=== PATIENT | male | born 1970 | race Caucasian/White ===

== ENCOUNTER 2019-07-24 19:24 | Inpatient (IN) | payer BC ==
[2019-07-24] MEDS: SODIUM CHLORIDE 0.9% 1L BAG IV* (20:07)
[2019-07-24] MEDS: ONDANSETRON 4 MG INJ IV (20:08)
[2019-07-24] MEDS: ACETAMINOPHEN 325 MG TAB PO (20:08)
[2019-07-24] MEDS: morphine 4 MG/ML VIAL IV ×2 (20:08→20:16)
[2019-07-24] MEDS: AMPICILLIN/SULB 3 GM/NS (PMX) 100 ML IVPB (20:11)
[2019-07-24 20:17] LABS: ADD MAN DIFF? NO
[2019-07-24 20:21] LABS: BASOPHILS % 0.1 % (0.0-2.0); HEMATOCRIT 44.9 % (42.0-52.0); HEMOGLOBIN 15.1 g/dl (14.0-18.0); LYMPHOCYTES # 0.7 10^3/ul (0.8-2.9); MEAN CORPUSCULAR HEMOGLOBIN 32.6 pg (29.0-33.0); MEAN CORPUSCULAR HGB CONC 33.6 g/dl (32.0-37.0); MEAN PLATELET VOLUME 10.3 fl (7.4-10.4); MONOCYTE # 0.3 10^3/ul (0.3-0.9); NEUTROPHIL # 7.2 10^3/ul (1.6-7.5); NEUTROPHILS % 87.7 % (39.0-77.0); PLATELET COUNT 167 10^3/UL (140-415); RED BLOOD COUNT 4.63 10^6/ul (4.70-6.10); RED CELL DISTRIBUTION WIDTH 12.6 % (11.5-14.5)
[2019-07-24 20:21] LABS: WHITE BLOOD COUNT 8.2 10^3/ul (4.8-10.8)
[2019-07-24 20:30] LABS: ADD UMIC YES; UR ASCORBIC ACID NEGATIVE (NEGATIVE); UR BILIRUBIN (Dip) NEGATIVE (NEGATIVE); UR BLOOD (Dip) NEGATIVE (NEGATIVE); UR CLARITY SLIGHTLY CLOUDY (CLEAR); UR COLOR YELLOW (YELLOW); UR GLUCOSE (Dip) NEGATIVE (NEGATIVE); UR KETONES (Dip) 1+ mg/dL (NEGATIVE); UR LEUKOCYTE ESTERASE (Dip) NEGATIVE Leu/ul (NEGATIVE); UR MUCUS MODERATE /HPF (NONE SEEN); UR NITRITE (Dip) NEGATIVE (NEGATIVE); UR RBC 1 /HPF (0-5); UR SPECIFIC GRAVITY (Dip) 1.021 (1.003-1.030); UR TOTAL PROTEIN (Dip) 1+ mg/dl (NEGATIVE); UR UROBILINOGEN (Dip) NEGATIVE (NEGATIVE); UR WBC 1 /HPF (0-5)
[2019-07-24 20:41] LABS: ALANINE AMINOTRANSFERASE 46 IU/L (13-69); ALBUMIN 4.3 g/dl (3.3-4.9); ALBUMIN/GLOBULIN RATIO 1.43; ALKALINE PHOSPHATASE 36 IU/L (42-121); ANION GAP 9 (5-13); ASPARTATE AMINO TRANSFERASE 29 IU/L (15-46); BLOOD UREA NITROGEN 12 mg/dl (7-20); CALCIUM 9.3 mg/dl (8.4-10.2); CARBON DIOXIDE 22 mmol/L (21-31); CHLORIDE 105 mmol/L (97-110); CREATININE 0.97 mg/dl (0.61-1.24); Estimated GFR > 60 mL/min (>60); GLUCOSE 158 mg/dl (70-220); INR 0.96; PARTIAL THROMBOPLASTIN TIME 27.8 Sec (23.0-35.0); PROTIME 12.9 Sec (11.9-14.9); SODIUM 136 mmol/L (135-144); TOTAL PROTEIN 7.3 g/dl (6.1-8.1)
[2019-07-24 20:53] LABS: TROPONIN-I < 0.012 ng/ml (0.000-0.120)
[2019-07-24] MEDS ORDERED: ACETAMINOPHEN 325 MG TAB PO ×2 (21:30→22:30)
[2019-07-24] MEDS ORDERED: ONDANSETRON 4 MG INJ IV ×2 (21:30→22:30)
[2019-07-24] MEDS ORDERED: NACL 0.9% 3 ML SYG IV (22:30)
[2019-07-24] MEDS ORDERED: BISACODYL (EC) 5 MG TAB PO (22:30)
[2019-07-24] MEDS ORDERED: DOCUSATE SODIUM 100 MG CAP PO (22:30)
[2019-07-24] MEDS ORDERED: morphine 2 MG INJ IV (22:30)
[2019-07-24] MEDS: SOD CHLORIDE 0.9% 1,000 ML IV (22:45)
[2019-07-24 23:42] LABS: LACTIC ACID 1.9 mmol/L (0.5-2.0)
[2019-07-25] MEDS: PIPER-TAZO 3.375 GM IV (PMX) 100 ML IVPB ×5 (00:51→23:31)
[2019-07-25 00:54] LABS: ADD MAN DIFF? NO
[2019-07-25 00:57] LABS: BASOPHILS % 0.1 % (0.0-2.0); HEMATOCRIT 40.3 % (42.0-52.0); HEMOGLOBIN 13.7 g/dl (14.0-18.0); LYMPHOCYTES # 1.1 10^3/ul (0.8-2.9); LYMPHOCYTES % 12.6 % (15.0-51.0); MEAN CORPUSCULAR HEMOGLOBIN 33.1 pg (29.0-33.0); MEAN CORPUSCULAR VOLUME 97.3 fl (82.0-101.0); MEAN PLATELET VOLUME 10.7 fl (7.4-10.4); MONOCYTE # 0.4 10^3/ul (0.3-0.9); MONOCYTES % 4.9 % (0.0-11.0); NEUTROPHIL # 6.9 10^3/ul (1.6-7.5); NEUTROPHILS % 82.2 % (39.0-77.0); PLATELET COUNT 151 10^3/UL (140-415); RED BLOOD COUNT 4.14 10^6/ul (4.70-6.10); RED CELL DISTRIBUTION WIDTH 12.7 % (11.5-14.5)
[2019-07-25 00:57] LABS: WHITE BLOOD COUNT 8.3 10^3/ul (4.8-10.8)
[2019-07-25 01:16] LABS: INR 0.97
[2019-07-25 01:17] LABS: PARTIAL THROMBOPLASTIN TIME 28.9 Sec (23.0-35.0)
[2019-07-25 01:39] LABS: LACTIC ACID 0.8 mmol/L (0.5-2.0)
[2019-07-25 01:40] LABS: ALANINE AMINOTRANSFERASE 48 IU/L (13-69); ALBUMIN 3.2 g/dl (3.3-4.9); ALBUMIN/GLOBULIN RATIO 1.18; ALKALINE PHOSPHATASE 33 IU/L (42-121); ANION GAP 5 (5-13); ASPARTATE AMINO TRANSFERASE 23 IU/L (15-46); BILIRUBIN,INDIRECT 1.1 mg/dl (0-1.1); BILIRUBIN,TOTAL 1.1 mg/dl (0.2-1.3); BLOOD UREA NITROGEN 13 mg/dl (7-20); CALCIUM 8.5 mg/dl (8.4-10.2); CARBON DIOXIDE 23 mmol/L (21-31); CHLORIDE 110 mmol/L (97-110); CREATININE 0.91 mg/dl (0.61-1.24); Estimated GFR > 60 mL/min (>60); GLUCOSE 125 mg/dl (70-220); MAGNESIUM 1.6 mg/dl (1.7-2.5); POTASSIUM 3.7 mmol/L (3.5-5.1); SODIUM 138 mmol/L (135-144); TOTAL PROTEIN 5.9 g/dl (6.1-8.1)
[2019-07-25 06:16] LABS: HIV 1&2 ANTIBODY NEGATIVE (NEGATIVE)
[2019-07-25] MEDS ORDERED: BUPIVACAINE 0.25%/EPI (SDV) 10 ML INJ (07:09)
[2019-07-25] MEDS ORDERED: ACETAMINOPHEN 325 MG TAB PO (07:30)
[2019-07-25] MEDS ORDERED: ONDANSETRON 4 MG INJ (07:30)
[2019-07-25] MEDS ORDERED: FENTAnyl 50 MCG/ML VIAL (07:30)
[2019-07-25] MEDS ORDERED: METOCLOPRAMIDE 10 MG INJ (07:30)
[2019-07-25] MEDS ORDERED: MIDAZOLAM 1 MG/ML 2 ML INJ (07:30)
[2019-07-25] MEDS ORDERED: ROCURONIUM 50 MG INJ (07:30)
[2019-07-25] MEDS ORDERED: PROPOFOL 20 ML (07:30)
[2019-07-25] MEDS ORDERED: LIDOCAINE 2% (SDV) 5 ML INJ (07:30)
[2019-07-25] MEDS ORDERED: SUGAMMADEX SODIUM 200 MG/2 ML VIAL IV (07:31)
[2019-07-25] MEDS: LIDOCAINE 1% (MPF) 30 ML INJ (07:45)
[2019-07-25] MEDS ORDERED: ONDANSETRON 4 MG INJ IV (08:00)
[2019-07-25] MEDS ORDERED: FENTAnyl 50 MCG/ML VIAL IV (08:00)
[2019-07-25] MEDS ORDERED: PROCHLORPERAZINE 10 MG INJ IV (08:00)
[2019-07-25] MEDS ORDERED: OXYCODONE/ACETAMINOPHEN (5/325) TAB PO (08:00)
[2019-07-25] MEDS ORDERED: MEPERIDINE 25 MG INJ IV (08:00)
[2019-07-25] MEDS: HYDROmorphONE 1 MG/5 ML IV SYRINGE IV (08:52)
[2019-07-25] MEDS: morphine 2 MG INJ IV (10:09)
[2019-07-25] MEDS: HYDROCODONE/APAP (5/325) TAB PO (12:48)
[2019-07-25] MEDS: D5-NS + KCL 20 MEQ 1,000 ML IV (18:13)
[2019-07-25] MEDS: HYDROCODONE/APAP (10/325) TAB PO (21:13)
[2019-07-26] MEDS: morphine 2 MG INJ IV ×2 (00:08→06:11)
[2019-07-26] MEDS: D5-NS + KCL 20 MEQ 1,000 ML IV ×4 (03:19→13:56)
[2019-07-26] MEDS: HYDROCODONE/APAP (10/325) TAB PO ×2 (04:48→13:55)
[2019-07-26 04:57] LABS: ADD MAN DIFF? NO
[2019-07-26 04:59] LABS: BASOPHILS % 0.1 % (0.0-2.0); EOSINOPHILS % 0.1 % (0.0-7.0); HEMATOCRIT 40.9 % (42.0-52.0); HEMOGLOBIN 13.5 g/dl (14.0-18.0); LYMPHOCYTES # 1.1 10^3/ul (0.8-2.9); LYMPHOCYTES % 15.9 % (15.0-51.0); MEAN CORPUSCULAR HEMOGLOBIN 32.8 pg (29.0-33.0); MEAN CORPUSCULAR VOLUME 99.3 fl (82.0-101.0); MEAN PLATELET VOLUME 10.6 fl (7.4-10.4); MONOCYTE # 0.5 10^3/ul (0.3-0.9); MONOCYTES % 7.3 % (0.0-11.0); NEUTROPHIL # 5.4 10^3/ul (1.6-7.5); NEUTROPHILS % 76.3 % (39.0-77.0); PLATELET COUNT 144 10^3/UL (140-415); RED BLOOD COUNT 4.12 10^6/ul (4.70-6.10); RED CELL DISTRIBUTION WIDTH 12.8 % (11.5-14.5)
[2019-07-26 05:13] LABS: LACTIC ACID 0.7 mmol/L (0.5-2.0)
[2019-07-26 05:23] LABS: MAGNESIUM 1.9 mg/dl (1.7-2.5)
[2019-07-26] MEDS: EMTRICITABINE/TENOFOVIR TAB PO ×2 (05:26→23:12)
[2019-07-26] MEDS: PIPER-TAZO 3.375 GM IV (PMX) 100 ML IVPB ×4 (05:26→23:12)
[2019-07-26 05:27] LABS: ALANINE AMINOTRANSFERASE 49 IU/L (13-69); ALKALINE PHOSPHATASE 35 IU/L (42-121); ANION GAP 5 (5-13); ASPARTATE AMINO TRANSFERASE 26 IU/L (15-46); BILIRUBIN,INDIRECT 1.4 mg/dl (0-1.1); BILIRUBIN,TOTAL 1.4 mg/dl (0.2-1.3); BLOOD UREA NITROGEN 8 mg/dl (7-20); CALCIUM 8.4 mg/dl (8.4-10.2); CARBON DIOXIDE 26 mmol/L (21-31); CHLORIDE 107 mmol/L (97-110); CREATININE 1.07 mg/dl (0.61-1.24); Estimated GFR > 60 mL/min (>60); GLUCOSE 115 mg/dl (70-220); POTASSIUM 3.8 mmol/L (3.5-5.1); SODIUM 138 mmol/L (135-144)
[2019-07-26] MEDS: ENOXAPARIN 40 MG/0.4 ML SYG SC (06:08)
[2019-07-26] MEDS: ONDANSETRON 4 MG INJ IV (06:46)
[2019-07-26] MEDS: FAMOTIDINE 20 MG INJ IV (09:00)
[2019-07-26] MEDS ORDERED: EMTRICITABINE/TENOFOVIR TAB PO ×2 (09:00→23:00)
[2019-07-26] MEDS: morphine 4 MG/ML VIAL IV (09:00)
[2019-07-27] MEDS: D5-NS + KCL 20 MEQ 1,000 ML IV (01:54)
[2019-07-27] MEDS: traMADol 50 MG TAB PO (02:00)
[2019-07-27 05:12] LABS: ADD MAN DIFF? NO
[2019-07-27 05:14] LABS: WHITE BLOOD COUNT 7.2 10^3/ul (4.8-10.8)
[2019-07-27 05:14] LABS: BASOPHILS % 0.1 % (0.0-2.0); EOSINOPHILS # 0.1 10^3/ul (0.0-0.5); EOSINOPHILS % 0.7 % (0.0-7.0); HEMATOCRIT 39.1 % (42.0-52.0); HEMOGLOBIN 13.1 g/dl (14.0-18.0); LYMPHOCYTES # 0.9 10^3/ul (0.8-2.9); LYMPHOCYTES % 12.4 % (15.0-51.0); MEAN CORPUSCULAR HEMOGLOBIN 32.7 pg (29.0-33.0); MEAN CORPUSCULAR HGB CONC 33.5 g/dl (32.0-37.0); MEAN CORPUSCULAR VOLUME 97.5 fl (82.0-101.0); MEAN PLATELET VOLUME 10.6 fl (7.4-10.4); MONOCYTE # 0.5 10^3/ul (0.3-0.9); MONOCYTES % 7.1 % (0.0-11.0); NEUTROPHIL # 5.7 10^3/ul (1.6-7.5); NEUTROPHILS % 79.3 % (39.0-77.0); PLATELET COUNT 146 10^3/UL (140-415); RED BLOOD COUNT 4.01 10^6/ul (4.70-6.10); RED CELL DISTRIBUTION WIDTH 12.5 % (11.5-14.5)
[2019-07-27 05:28] LABS: ANION GAP 7 (5-13); BLOOD UREA NITROGEN 6 mg/dl (7-20); CALCIUM 8.4 mg/dl (8.4-10.2); CARBON DIOXIDE 24 mmol/L (21-31); CHLORIDE 107 mmol/L (97-110); CREATININE 0.96 mg/dl (0.61-1.24); Estimated GFR > 60 mL/min (>60); GLUCOSE 125 mg/dl (70-220); POTASSIUM 3.4 mmol/L (3.5-5.1); SODIUM 138 mmol/L (135-144)
[2019-07-27] MEDS: PIPER-TAZO 3.375 GM IV (PMX) 100 ML IVPB ×2 (06:10→12:47)
[2019-07-27] MEDS: ENOXAPARIN 40 MG/0.4 ML SYG SC (06:11)
[2019-07-27] MEDS: FAMOTIDINE 20 MG INJ IV (09:00)
== END 2019-07-27 14:39 | disposition home or self-care (01) | DRG 340 ==
LOC: E/R 19:24 → MS1 21:21
PROVIDERS: Family Medicine
PROC: 0DTJ4ZZ Resection of Appendix, Percutaneous Endoscopic Approach (ICD-10-PCS; principal; 2019-07-25 07:29)
DX: K35.32 Acute appendicitis with perforation, localized peritonitis, and gangrene, without abscess (principal); J98.4 Other disorders of lung
CPT/HCPCS: 71045; 71250; 74176; 80048; 80053; 81001; 83605; 83735; 84100; 84443; 84484; 85025; 85610; 85730; 86703; 86850; 86900; 86901; 87040-91; 87086; 88304; 93005; 96374; 96375; 99285-25

== ENCOUNTER 2019-08-02 14:17 | Emergency (ER) | payer BC ==
[2019-08-02 15:37] LABS: ADD MAN DIFF? NO
[2019-08-02 15:39] LABS: WHITE BLOOD COUNT 9.6 10^3/ul (4.8-10.8)
[2019-08-02 15:39] LABS: BASOPHILS % 0.3 % (0.0-2.0); EOSINOPHILS # 0.1 10^3/ul (0.0-0.5); HEMOGLOBIN 15.1 g/dl (14.0-18.0); LYMPHOCYTES # 1.8 10^3/ul (0.8-2.9); LYMPHOCYTES % 18.4 % (15.0-51.0); MEAN CORPUSCULAR HEMOGLOBIN 33.3 pg (29.0-33.0); MEAN CORPUSCULAR HGB CONC 33.6 g/dl (32.0-37.0); MEAN CORPUSCULAR VOLUME 99.1 fl (82.0-101.0); MEAN PLATELET VOLUME 9.8 fl (7.4-10.4); MONOCYTE # 0.6 10^3/ul (0.3-0.9); MONOCYTES % 5.7 % (0.0-11.0); NEUTROPHIL # 7.1 10^3/ul (1.6-7.5); NEUTROPHILS % 74.3 % (39.0-77.0); PLATELET COUNT 304 10^3/UL (140-415); RED BLOOD COUNT 4.54 10^6/ul (4.70-6.10)
[2019-08-02 15:59] LABS: ALANINE AMINOTRANSFERASE 84 IU/L (13-69); ALKALINE PHOSPHATASE 75 IU/L (42-121); ANION GAP 10 (5-13); ASPARTATE AMINO TRANSFERASE 64 IU/L (15-46); BILIRUBIN,INDIRECT 0.3 mg/dl (0-1.1); BILIRUBIN,TOTAL 0.3 mg/dl (0.2-1.3); BLOOD UREA NITROGEN 11 mg/dl (7-20); CALCIUM 9.1 mg/dl (8.4-10.2); CARBON DIOXIDE 27 mmol/L (21-31); CHLORIDE 102 mmol/L (97-110); CREATININE 1.09 mg/dl (0.61-1.24); Estimated GFR > 60 mL/min (>60); GLUCOSE 105 mg/dl (70-220); LIPASE 76 U/L (23-300); POTASSIUM 4.1 mmol/L (3.5-5.1); SODIUM 139 mmol/L (135-144)
[2019-08-02] MEDS ORDERED: IOHEXOL 300MG/ML 150 ML BTL (16:31)
[2019-08-02] MEDS ORDERED: SOD CHLORIDE 0.9% 100 ML (16:31)
[2019-08-02 17:16] LABS: URINE PH (Dip) POC 5.5 (5.0-8.5)
[2019-08-02 17:16] LABS: URINE BLOOD (Dip) POC Negative (NEGATIVE); URINE GLUCOSE (Dip) POC Negative (NEGATIVE); URINE KETONES (Dip) POC Negative (NEGATIVE); URINE LEUKOCYTE EST (Dip) POC Negative (NEGATIVE); URINE NITRITE (Dip) POC Negative (NEGATIVE); URINE TOTAL PROTEIN POC 1+ (NEGATIVE)
== END 2019-08-02 17:39 | disposition home or self-care (01) ==
LOC: E/R 14:17
DX: G89.18 Other acute postprocedural pain (principal)
CPT/HCPCS: 36415; 74177; 80053; 81003; 83690; 85025; 87040-91; 99284-25